=== PATIENT | female | born 1970 | race Caucasian/White ===

== ENCOUNTER → 2018-03-01 | Outpatient (CLI) | payer OTHER ==
[~2018-03-01] MED LIST: ESCI10TA10 PO
== END | disposition home or self-care (01) ==
LOC: STAR 15:21
PROVIDERS: ATTEND Specialist
DX: Z02.9 Encounter for administrative examinations, unspecified (principal)

== ENCOUNTER 2018-03-12 05:43 | Observation (INO) | payer OTHER ==
[~2018-03-12] VITALS: Ht 167.6 cm; Wt 99.5 kg
[2018-03-12] MEDS ORDERED: LACTATED RINGERS 1,000 ML IV SCH (06:37)
[2018-03-12] MEDS ORDERED: ESTROGENS CONJUGATED VAG CRM 0.625MG/1G, 30GM ONE (06:55)
[2018-03-12] MEDS ORDERED: ROCURONIUM 10MG/ML,5ML ONE (06:55)
[2018-03-12] MEDS ORDERED: CEFAZOLIN 1,000 MG ONE ×2 (06:55)
[2018-03-12] MEDS ORDERED: PROPOFOL 10 MG/ML, 20ML ONE (06:55)
[2018-03-12] MEDS ORDERED: BUPIVACAINE 0.25% ONE (06:55)
[2018-03-12] MEDS ORDERED: INDIGO CARMINE 0.8%, 5ML ONE (06:55)
[2018-03-12] MEDS ORDERED: MIDAZOLAM 1 MG/ML, 2ML ONE (06:55)
[2018-03-12] MEDS ORDERED: FENTANYL PF 250 MCG/5ML ONE (06:55)
[2018-03-12] MEDS ORDERED: METOCLOPRAMIDE 5 MG/ML, 2ML ONE (06:56)
[2018-03-12] MEDS ORDERED: NEOMY/POLYMYXIN B GU IRR. 1 ML IRRIG ONE (06:56)
[2018-03-12] MEDS ORDERED: THROMBIN 5,000 UNIT VIAL TP ONE (06:56)
[2018-03-12] MEDS ORDERED: LIDOCAINE-MPF 2% ,5ML ONE (06:56)
[2018-03-12] MEDS ORDERED: DEXAMETHASONE 4 MG/ML, 1ML ONE ×2 (06:56)
[2018-03-12] MEDS ORDERED: LIDOCAINE-MPF 1%, 2ML INFIL ONE (07:00)
[2018-03-12 07:16] LABS: HCG UR SG 1.031 (1.003-1.030)
[2018-03-12] MEDS ORDERED: ACETAMINOPHEN 500 MG TABLET PO ONE (07:30)
[2018-03-12] MEDS ORDERED: OXYcodone 5 MG/5 ML ORAL.SOL UDC PO PRN (07:30)
[2018-03-12] MEDS ORDERED: GABAPENTIN 300 MG CAPSULE PO ONE (07:30)
[2018-03-12] MEDS ORDERED: SUCCINYLCHOLINE 20 MG/ML, 10ML ONE (07:30)
[2018-03-12] MEDS ORDERED: MEPERIDINE/PF 25MG/0.5ML IVPush PRN (07:30)
[2018-03-12] MEDS ORDERED: SCOPOLAMINE PATCH, 1.5MG PATCH.TD72 TD PRN (07:30)
[2018-03-12] MEDS ORDERED: ONDANSETRON ODT 8 MG PO ONE (07:30)
[2018-03-12] MEDS ORDERED: HYDROmorphone 2 MG/ML, 1ML IVPush PRN (07:30)
[2018-03-12] MEDS ORDERED: LORazepam 2 MG/ML, 1ML IVPush PRN (07:30)
[2018-03-12] MEDS ORDERED: LABETALOL 5MG/ML, 20ML IV PRN (07:30)
[2018-03-12] MEDS ORDERED: OXYcodone 5 MG/5 ML ORAL.SOL UDC ONE (10:55)
[2018-03-12] MEDS ORDERED: FENTANYL PF 100 MCG/2ML ONE (11:00)
[2018-03-12] MEDS: FENTANYL PF 100 MCG/2ML IV PRN ×2 (11:01→11:30)
[2018-03-12] MEDS ORDERED: MEPERIDINE/PF 50 MG/ML ONE (11:31)
[2018-03-12] MEDS ORDERED: ONDANSETRON 2MG/ML, 2ML ONE (16:44)
[2018-03-12] MEDS ORDERED: IBUPROFEN 600 MG TABLET ONE (17:56)
[2018-03-12] MEDS: IBUPROFEN 600 MG TABLET PO PRN (17:59)
[2018-03-12] MEDS ORDERED: OXYcodone/APAP 5/325MG TABLET PO PRN (18:00)
[2018-03-12] MEDS ORDERED: ONDANSETRON 2MG/ML, 2ML IVPush PRN (18:00)
[2018-03-12 18:17] LABS: BASOPHILS # (AUTO) 0.01 x10^3/uL (0-0.1); BASOPHILS % (AUTO) 0 % (0-1); EOSINOPHILS # (AUTO) 0.07 x10^3/uL (0-0.4); EOSINOPHILS % (AUTO) 1 % (1-7); LYMPHOCYTES % (AUTO) 8 % (22-44); MD NO; MEAN CORPUSCULAR HEMOGLOBIN 30.4 pg (27.0-34.8); MEAN CORPUSCULAR HGB CONC 34.3 g/dL (32.4-35.8); MEAN CORPUSCULAR VOLUME 88.5 fL (80-100); MEAN PLATELET VOLUME 8.4 fL (7.4-10.4); MONOCYTES # (AUTO) 0.35 x10^3/uL (0.2-0.8); MONOCYTES % (AUTO) 3 % (2-9); NEUTROPHILS # (AUTO) 11.99 x10^3/uL (1.8-6.8); NEUTROPHILS % (AUTO) 89 % (42-75); PLATELET COUNT 280 x10^3/uL (130-400); RED BLOOD COUNT 4.16 x10^6/uL (3.82-5.3); RED CELL DISTRIBUTION WIDTH 12.9 % (9.6-15.2)
[2018-03-12] MEDS: LACTATED RINGERS 1,000 ML IV SCH (18:30)
[2018-03-12 19:30] VITALS: BP 98/61
[2018-03-12 19:35] LABS: BASOPHILS % (AUTO) 0 % (0-1); EOSINOPHILS # (AUTO) 0.04 x10^3/uL (0-0.4); EOSINOPHILS % (AUTO) 0 % (1-7); LYMPHOCYTES # (AUTO) 1.29 x10^3/uL (1-3.4); LYMPHOCYTES % (AUTO) 10 % (22-44); MD NO; MEAN CORPUSCULAR HEMOGLOBIN 30.3 pg (27.0-34.8); MEAN CORPUSCULAR HGB CONC 34.2 g/dL (32.4-35.8); MEAN CORPUSCULAR VOLUME 88.6 fL (80-100); MEAN PLATELET VOLUME 8.2 fL (7.4-10.4); MONOCYTES % (AUTO) 4 % (2-9); NEUTROPHILS # (AUTO) 11.63 x10^3/uL (1.8-6.8); NEUTROPHILS % (AUTO) 86 % (42-75); PLATELET COUNT 276 x10^3/uL (130-400); RED BLOOD COUNT 4.09 x10^6/uL (3.82-5.3); RED CELL DISTRIBUTION WIDTH 12.9 % (9.6-15.2)
[2018-03-12] MEDS: SODIUM CHLORIDE FLUSH 10ML SYR IVF SCH (21:33)
[2018-03-12] MEDS: ACETAMINOPHEN 325 MG TABLET PO PRN (21:33)
[2018-03-13 00:13] VITALS: BP 97/53
[2018-03-13] MEDS: LACTATED RINGERS 1,000 ML IV SCH ×2 (02:40→10:30)
[2018-03-13] MEDS: IBUPROFEN 600 MG TABLET PO PRN ×2 (02:41→09:10)
[2018-03-13] MEDS: ACETAMINOPHEN 325 MG TABLET PO PRN ×3 (03:15→15:16)
[2018-03-13 03:48] VITALS: BP 99/54
[2018-03-13 07:55] VITALS: BP 88/55
[2018-03-13] MEDS: SODIUM CHLORIDE FLUSH 10ML SYR IVF SCH (09:00)
[2018-03-13] MEDS ORDERED: SODIUM CHLORIDE 0.9%, 500ML IVBOLUS ONE (14:30)
== END 2018-03-13 15:40 | disposition home or self-care (01) ==
LOC: OUT 05:43 → ORIP 17:48 → 4NOR 18:53 → INTOOBSV 18:54 → OBSVTOIN 18:54
PROVIDERS: ADMIT Specialist; ATTEND Specialist
DX: N83.202 Unspecified ovarian cyst, left side (principal); D25.9 Leiomyoma of uterus, unspecified; Z98.891 History of uterine scar from previous surgery; Z98.51 Tubal ligation status
CPT/HCPCS: 36415; 58553; 81025; 85025; 88307; G0378; J0330; J0690; J1100; J2175; J2250; J2405; J2704; J2765; J3010; J3490; J7040; J7120; Q0162